=== PATIENT | male | born 1955 | race Caucasian/White ===

== ENCOUNTER 2017-10-31 09:56 | Inpatient (IN) | payer BC ==
[2017-10-31] VITALS (8 sets, daily range): BP systolic 167–199; BP diastolic 90–103; PULSE 54–62; RESP 16–18; TEMP 97.4–98.4; O2SAT 96–99
[~2017-10-31] VITALS: Ht 165.1 cm; Wt 70.0 kg
[~2017-10-31 09:56] MED LIST: ASPI325T PO; CYCL1PAK PO; LORTA5 PO; ZOCO40TA PO
[2017-10-31] MEDS ORDERED: MELO7.5T27 PO (10:10)
[2017-10-31] MEDS ORDERED: ASPI-183 PO (10:10)
[2017-10-31] MEDS ORDERED: SIMV40TA PO (10:10)
--- NOTE | 2017-10-31 10:26 | PD ---
HPI Chief Complaint: Back/ Neck Pain or Injury Time Seen by Provider: 10:13 Travel History International Travel<30 days: No Contact w/Intl Traveler<30days: No Traveled to known affect area: No History of Present Illness HPI This patient complains of injuries from a fall. He was standing up on a platform 5 foot off the ground working in a house. He actually stepped off a platform and fell. He fell head first and struck his head. He denies LOC. He struck dirt. He has mild headache. He complains of some stiffness of his neck. He is not having neck pain per se. He says that when he hit the ground his right hand would not work right for about 1 minute. Now moves well. He complains of paresthesia between right shoulder and right elbow. It is only on the top of his arm. Not circumferential. Does not have numbness or motor weakness at this time. He has been ambulatory for the last 2 hours prior to coming in. He drove himself here. Duration is 2 hours. Symptoms are moderately severe. No alleviating factors. No exacerbating factors. He takes a baby aspirin daily. PFSH Past Medical History Cardiac Catheterization: Yes High Cholesterol: Yes Diminished Hearing: No Hypertension: Yes Tetanus Vaccination: < 5 Years Past Surgical History Abdominal Surgery: Yes (HERNIA) Social History Alcohol Use: No Tobacco Use: No Substance Use: No Allergies-Medications (Allergen,Severity, Reaction): Coded Allergies: No Known Allergies (Verified Adverse Reaction, Unknown, 10/31/17) Reported Meds & Prescriptions Reported Meds & Active Scripts Active Reported Simvastatin 40 Mg Tab 40 Mg PO HS Meloxicam 7.5 Mg Tab 7.5 Mg PO DAILY Aspirin 325 Mg Tab 325 Mg PO DAILY Review of Systems General / Constitutional: No: Fever Eyes: No: Visual changes HENT: Positive: Headaches, Neck Pain Cardiovascular: No: Chest Pain or Discomfort Respiratory: No: Shortness of Breath Gastrointestinal: No: Abdominal Pain Genitourinary: No: Dysuria Musculoskeletal: No: Pain Skin: No Rash Neurologic: Positive: Paresthesia, No: Weakness Psychiatric: No: Depression Endocrine: No: Polydipsia Hematologic/Lymphatic: No: Easy Bruising Physical Exam Narrative GENERAL: Well-nourished, well-developed patient in no apparent distress. SKIN: Focused skin assessment reveals no rash and nodules. Skin is Warm and dry. HEAD: Atraumatic. Normocephalic. EYES: Pupils equal and round. No scleral icterus. No injection or drainage. ENT: No nasal bleeding or discharge. Mucous membranes pink and moist. NECK: Trachea midline. No JVD. No midline tenderness. No bruising or swelling. [place] collar was applied in triage and that is maintained CARDIOVASCULAR: Regular rate and rhythm. No murmur appreciated. RESPIRATORY: No accessory muscle use. Clear to auscultation. Breath sounds equal bilaterally. GASTROINTESTINAL: Abdomen soft, non-tender, nondistended. Hepatic and splenic margins not palpable. MUSCULOSKELETAL: No obvious deformities. No clubbing. No cyanosis. No edema. NEUROLOGICAL: Awake and alert. No obvious cranial nerve deficits. Motor grossly within normal limits. Normal speech. Sensation subjectively intact. He has subjective paresthesia in the right upper arm but no objective finding PSYCHIATRIC: Appropriate mood and affect; insight and judgment normal. Data Data Last Documented VS Vital Signs Date Time Temp Pulse Resp B/P (MAP) Pulse Ox O2 Delivery O2 Flow Rate FiO2 10/31/17 12:28 55 16 176/93 (120) 97 Room Air 10/31/17 09:[address] Brain W/O Iv Contrast(Rout) (10/31/17 ) Ct Cerv Spine W/O Contrast (10/31/17 ) Mri C Spine W/O Contrast (10/31/17 ) Iv Access Insert/Monitor (10/31/17 10:21) Complete Blood Count With Diff (10/31/17 10:21) Basic Metabolic Panel (Bmp) (10/31/17 10:21) Prothrombin Time / Inr (Pt) (10/31/17 10:21) Act Partial Throm Time (Ptt) (10/31/17 10:21) Labetalol Inj (Trandate Inj) (10/31/17 10:30) [place] J Collar (10/31/17 ) Spine, Cervical Fl/Ext Only (10/31/17 ) Labs Laboratory Tests Test 10/31/17 10:15 White Blood Count 6.8 TH/MM3 Red Blood Count 3.82 MIL/MM3 Hemoglobin 12.9 GM/DL Hematocrit 36.1 % Mean Corpuscular Volume 94.5 FL Mean Corpuscular Hemoglobin 33.7 PG Mean Corpuscular Hemoglobin Concent 35.7 % Red Cell Distribution Width 13.9 % Platelet Count 306 TH/MM3 Mean Platelet Volume 7.0 FL Neutrophils (%) (Auto) 78.3 % Lymphocytes (%) (Auto) 13.5 % Monocytes (%) (Auto) 6.1 % Eosinophils (%) (Auto) 1.6 % Basophils (%) (Auto) 0.5 % Neutrophils # (Auto) 5.4 TH/MM3 Lymphocytes # (Auto) 0.9 TH/MM3 Monocytes # (Auto) 0.4 TH/MM3 Eosinophils # (Auto) 0.1 TH/MM3 Basophils # (Auto) 0.0 TH/MM3 CBC Comment DIFF FINAL Differential Comment Prothrombin Time 10.0 SEC Prothromb Time International Ratio 1.0 RATIO Activated Partial Thromboplast Time 27.7 SEC Blood Urea Nitrogen 28 MG/DL Creatinine 1.22 MG/DL Random Glucose 104 MG/DL Calcium Level 9.7 MG/DL Sodium Level 138 MEQ/L Potassium Level 4.6 MEQ/L Chloride Level 104 MEQ/L Carbon Dioxide Level 23.5 MEQ/L Anion Gap 11 MEQ/L Estimat Glomerular Filtration Rate 60 ML/MIN MDM Medical Decision Making Medical Screen Exam Complete: Yes Emergency Medical Condition: Yes Medical Record Reviewed: Yes Differential Diagnosis Cervical cord contusion, cervical fracture, intracranial hemorrhage Narrative Course I have reviewed the patient's electronic medical record. Patient was seen in 2014 for fall resulting pneumothorax IV placed and labs sent At this time there is no neurologic deficit I have ordered extensive imaging of his head and neck region Brain CT is negative Cervical spine CT shows a fracture of C1 which is acute. MRI of the cervical spine shows some degenerative disease and canal narrowing CBC and metabolic studies reviewed I reviewed the case in detail with neurosurgeon Dr. Lang. He came down to the ER and evaluated the patient. He recommends [place] collar placement and admission to the hospital to the trauma service on the regular floor I discussed this with trauma surgeon Dr. Stahl by way of the circulating nurse as he is scrubbed in the case but he agrees to admit Critical Care Narrative Aggregate critical care time was 35 minutes. Time to perform other separately billable procedures was not included in the critical care time. My time did not include minutes spent treating any other patients simultaneously or on activities that did not directly contribute to the patient's treatment. The services I provided to this patient were to treat and/or prevent clinically significant deterioration that could result in: Permanent neurological deficit, brain stem herniation, intracranial hemorrhage I provided critical care services requiring my management, as noted below: Chart data review, documentation time, medication orders and management, vital sign assessments/reviewing monitor data, ordering and reviewing lab tests, ordering and interpreting/reviewing x-rays and diagnostic studies, care of the patient and discussion of the patient with the admitting physicians. Diagnosis Primary Impression: C1 cervical fracture Qualified Codes: S12.001A - Unspecified nondisplaced fracture of first cervical vertebra, initial encounter for closed fracture Additional Impressions: Head injury Qualified Codes: S09.90XA - Unspecified injury of head, initial encounter Paresthesia of right arm Hypertension Qualified Codes: I10 - Essential (primary) hypertension Admitting Information Admitting Physician Requests: Bill Cifuentes MD Oct 31, 2017 10:26
[2017-10-31] MEDS ORDERED: LABETALOL HCL 100 MG/20 ML VIAL IV PUSH ONE (10:30)
[2017-10-31 10:44] LABS: AUTOMATED NEUTROPHIL # 5.4 TH/MM3 (1.8-7.7); BASOPHIL % 0.5 % (0.0-2.0); EOSINOPHIL # 0.1 TH/MM3 (0-0.4); EOSINOPHIL % 1.6 % (0.0-4.0); HEMATOCRIT 36.1 % (39.0-51.0); HEMOGLOBIN 12.9 GM/DL (13.0-17.0); LYMPH % 13.5 % (9.0-44.0); LYMPHOCYTE # 0.9 TH/MM3 (1.0-4.8); MEAN CELL VOLUME 94.5 FL (80.0-100.0); MEAN CORPUSCULAR HEMOGLOBIN 33.7 PG (27.0-34.0); MEAN CORPUSCULAR HGB CONC 35.7 % (32.0-36.0); MONO % 6.1 % (0.0-8.0); MONOCYTE # 0.4 TH/MM3 (0-0.9); NEUT % 78.3 % (16.0-70.0); PLATELET COUNT 306 TH/MM3 (150-450); RED BLOOD COUNT 3.82 MIL/MM3 (4.50-5.90); RED CELL DISTRIBUTION WIDTH 13.9 % (11.6-17.2); WHITE BLOOD COUNT 6.8 TH/MM3 (4.0-11.0)
[2017-10-31 11:00] LABS: BICARBONATE 23.5 MEQ/L (21.0-32.0); CALCIUM 9.7 MG/DL (8.5-10.1); CREATININE 1.22 MG/DL (0.60-1.30)
--- NOTE | 2017-10-31 11:17 | RADRPT ---
EXAM DATE: 10/31/2017 10:59 AM EDT AGE/SEX: 62 years / Male INDICATIONS: Fall off of platform five feet high. Patient states he hit his head and neck. CLINICAL DATA: This is the patient's initial encounter. Patient reports that signs and symptoms have been present for 1 day and indicates a pain score of 8/10. MEDICAL/SURGICAL HISTORY: Hypertension. . Cardiac cath. RADIATION DOSE: 17.94 CTDI (mGy) COMPARISON: No prior exams available for comparison. TECHNIQUE: Contiguous axial images were obtained using helical multirow detector technique. The vol umetric data was post-processed with multiplanar reconstruction in oblique axial, sagittal, and coron al planes. Using automated exposure control and adjustment of the mA and/or kV according to patient s ize, radiation dose was kept as low as reasonably achievable to obtain optimal diagnostic quality edmond ges. DICOM format image data is available electronically for review and comparison. FINDINGS: Vertebrae: There is fracturing of the right lateral mass of C1. This also fracturing of the posterio r arch of C1 just to the right of midline. There is fracturing through the right transverse process a nd foramina transversarium. These fractures are not significantly displaced. There does appear to be fusion at the C2 and C3 level. There is suspected fusion between the C3 and C 4 left facet joint. There is minimal 2 mm of anterior subluxation of C3 on C4 and of C7 on T1.. There is left sphenoid sinus disease. C2-3: Again noted is fusion at this level. The fusion involves the disc and posterior elements. A si gnificant impression on thecal sac is not seen. C3-4: Again noted is the mild anterior subluxation of C3 on C4. A significant impression on thecal s ac is not seen. There appears to be fusion at the left facet joint. There is fusion at the left uncov ertebral joint.. There is uncovertebral hypertrophy seen. There is narrowing of the left neural wale roland. The right neural foramina appears normal. C4-5: The disc demonstrates decreased height. There is moderate disc bulge and osteophytic ridging. There is uncovertebral hypertrophy. There is narrowing of the neural foramina bilaterally. C5-6: The disc demonstrates decreased height. There is mild disc bulge and osteophytic ridging. Ther e is uncovertebral hypertrophy being worse on the left. There is mild left facet hypertrophy. The rekha ral foramina are grossly patent. C6-7: The disc demonstrates decreased height. There is mild disc bulge and osteophytic ridging. Ther e is uncovertebral hypertrophy being worse on the right. The neural foramina are bilaterally patent. C7-T1: Again noted is the mild anterior subluxation of C7 on T1. A significant impression on thecal sac is not seen. There is bilateral facet hypertrophy. CONCLUSION: 1. Acute fracture at C1. 2. Fusion at the C2-C3 level and at the left facet and uncovertebral hypertrophy at the C3-C4 levels . 3. Moderate stenosis at the C4-C5 level caused by disc bulge and osteophytic ridging. 4. Mild thecal sac narrowing at the C5-C6 and C6-C7 levels. 5. Facet and uncovertebral hypertrophy seen throughout as described above. 6. Left neural foraminal narrowing at the C3-C4 level. Electronically signed by: Ag Isaac MD 10/31/2017 11:15 AM EDT
--- NOTE | 2017-10-31 11:19 | RADRPT ---
EXAM DATE: 10/31/2017 11:01 AM EDT AGE/SEX: 62 years / Male INDICATIONS: Fall from five foot high platform. Patient states he hit his head and neck. CLINICAL DATA: This is the patient's initial encounter. Patient reports that signs and symptoms have been present for 1 day and indicates a pain score of 8/10. MEDICAL/SURGICAL HISTORY: Hypertension. . Cardiac cath. RADIATION DOSE: 56.35 CTDI (mGy) COMPARISON: No prior exams available for comparison. TECHNIQUE: CT of the head without contrast. Using automated exposure control and adjustment of the mA and/or kV according to patient size, radiation dose was kept as low as reasonably achievable to ob tain optimal diagnostic quality images. DICOM format image data is available electronically for revi ew and comparison. FINDINGS: Cerebrum: The ventricles are normal for age. No evidence of midline shift, mass lesion, hemorrhage or acute infarction. No extraaxial fluid collections are seen. Posterior Fossa: The cerebellum and brainstem are intact. The 4th ventricle is midline. The cerebe llopontine angle is unremarkable. Extracranial: The visualized portion of the orbits is intact. There is right frontal, bilateral ethm oid, left sphenoid and bilateral maxillary sinus disease. Skull: The calvaria is intact. No evidence of skull fracture. CONCLUSION: 1. No acute intracranial abnormality is seen. 2. Sinus disease. Electronically signed by: Ag Isaac MD 10/31/2017 11:17 AM EDT
--- NOTE | 2017-10-31 11:35 | RADRPT ---
EXAM DATE: 10/31/2017 11:27 AM EDT AGE/SEX: 62 years / Male INDICATIONS: Fracture. Fall from 5 feet this morning. CLINICAL DATA: This is the patient's initial encounter. Patient reports that signs and symptoms have been present for 1 day and indicates a pain score of 3/10. MEDICAL/SURGICAL HISTORY: Hypertension. Umbilical hernia repair. COMPARISON: No prior exams available for comparison. TECHNIQUE: Multiplanar, multisequence MRI examination of the cervical spine was performed without co ntrast. FINDINGS: Sagittal T1 and T2-weighted imaging demonstrates severe degenerative changes throughout the upper and mid cervical spine. There is a couple field deformity with fusion across the C2/[address] raightening of the normal cervical curve. No abnormal marrow signal is seen within the vertebral bodi es. No abnormal signal is identified within the cervical cord. The cerebellar tonsils are in their appropriate location. 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 The thecal space and foramina are adequate. C3-C4: There is a desiccated, degenerated disc with broad-based disc bulge and osteophytic ridging. There is moderate facet arthritis bilaterally. There is moderate bony foraminal narrowing on the left . The foramina on the right appears adequate. There is effacement of the ventral thecal sac with oste ophytic spur and disc bulge just abutting the ventral aspect of the cord. C4-C5: There is a desiccated, degenerated disc with broad-based disc protrusion and diffuse osteophy tic ridging. This effaces the ventral thecal sac and abuts the ventral aspect of the cord. There is m oderate flattening of the cord. There is facet arthritis bilaterally. These changes combine and resul t in a severe spinal stenosis and bilateral foraminal narrowing. There is osteophytic spur and disc p rotrusion projecting into the lateral recess and out into the foramina on the right. C5-C6: There is a degenerated disc with a broad-based disc bulge and osteophytic ridging. This effac es the ventral thecal sac and abuts the ventral aspect of the cord. There is mild flattening of the v entral aspect of the cord. There is mild facet arthritis bilaterally. There is mild narrowing of the lateral recess bilaterally. There is bony foraminal narrowing bilaterally. C6-C7: There is a desiccated, degenerated disc with broad-based disc bulge and osteophytic ridging. This effaces the ventral thecal sac. There is uncovertebral osteophyte and disc bulge projecting into the lateral recess and encroaching upon the base of the foramina on the right. The foramina on the l eft is adequate. There is mild facet arthritis bilaterally. C7-T1: No epidural impressions seen. There is facet arthritis bilaterally.. CONCLUSION: 1. Advanced degenerative spondylosis with the most significant abnormality at C4-5. Note is made of significant degenerative changes at C3-4 and C5-6 as well. The individual levels are dictated in deta il above. Electronically signed by: Louie Castillo MD 10/31/2017 11:34 AM EDT
--- NOTE | 2017-10-31 13:44 | RADRPT ---
EXAM DATE: 10/31/2017 1:39 PM EDT AGE/SEX: 62 years / Male INDICATIONS: Evaluate C1 fracture and mobility. CLINICAL DATA: This is the patient's initial encounter. Patient reports that signs and symptoms have been present for 1 day and indicates a pain score of 1/10. MEDICAL/SURGICAL HISTORY: None. None. COMPARISON: No prior exams available for comparison. FINDINGS: Flexion and extension films of the cervical spine reveals little motion with flexion-extension. 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 Osteophytes are seen anteriorly from C3 to C6. There is marked loss of disc space height at all levels. CONCLUSION: Fusions as above with significant degenerative changes No abnormal motion segments. Electronically signed by: Jerry Castillo MD 10/31/2017 1:43 PM EDT
[2017-10-31] MEDS ORDERED: MORPHINE SULFATE 4 MG/ML INJ IV PUSH ONE (14:45)
[2017-10-31] MEDS ORDERED: ONDANSETRON ODT 4 MG TAB PO ONE (14:45)
[2017-10-31] MEDS ORDERED: ENALAPRILAT 1.25 MG/ML VIAL IV PUSH PRN (17:00)
[2017-10-31] MEDS ORDERED: CHLORHEXIDINE GLUCONATE 2 % 1 PACK (2 CLOTHS) TOP PRN (17:00)
[2017-10-31] MEDS ORDERED: HYDROmorphone HCL PF 2 MG/ML VIAL IV PUSH PRN (17:00)
[2017-10-31] MEDS ORDERED: NURSING INFORMATION XX SCH (17:00)
[2017-10-31] MEDS ORDERED: ACETAMINOPHEN/HYDROcodone 325 MG/5 MG TAB PO PRN ×2 (17:00)
[2017-10-31] MEDS ORDERED: SODIUM CHLORIDE 0.9% FLUSH 10 ML FLUSH IV FLUSH PRN (17:00)
--- NOTE | 2017-10-31 17:39 | MH ---
cc: Johnny Stahl MD, Lars S MD DATE OF ADMISSION: 10/31/2017 CHIEF COMPLAINT: Status post fall, trauma consult. HISTORY OF PRESENT ILLNESS: The patient is a 62-year-old male who presents status post fall. The patient states he was on a platform approximately 5 feet up when he was working on his house and he stepped off and fell onto the dirt. He denies any loss of consciousness. He states he struck the dirt and complains of headache and right upper extremity tingling and numbness. He came to the emergency department for evaluation including CT scan of the head which was negative and a CT C-spine showing previous hardware along with a comminuted C1 fracture. He has been hemodynamically stable, although he has been somewhat hypertensive and otherwise awake and alert with a GCS of 15. Surgery was consulted for further evaluation. PAST MEDICAL HISTORY: Hypercholesteremia, hypertension, hearing impaired. PAST SURGICAL HISTORY: Hernia repair, cardiac catheterization. SOCIAL HISTORY: Denies smoking, ETOH or IVDA. ALLERGIES: NO KNOWN DRUG ALLERGIES. MEDICATIONS: See EMR. FAMILY HISTORY: Denies diabetes or hypertension. REVIEW OF SYSTEMS: GENERAL: Denies fever or chills. HEENT: Denies eye pain, ear pain. Complains of headache. NECK: Complains of pain. Denies swelling. RESPIRATORY: Denies shortness of breath. CARDIAC: Denies palpitations or chest pain. ABDOMEN: Denies nausea or vomiting. GENITOURINARY: Denies dysuria, hematuria. ENDOCRINE: Denies polyuria or polydipsia. NEUROLOGIC: Complains of paresthesias, denies weakness. PSYCHIATRIC: Denies depression or change in mood. PHYSICAL EXAMINATION: GENERAL: The patient in no acute distress. VITAL SIGNS: Temperature 97.4, pulse 55, respirations 16, blood pressure 176/93, saturation 97%. HEENT: Pupils equal, round, reactive. NECK: Supple. Trachea midline. C-collar in place. Clavicles nontender. CHEST: Clear to auscultation, bilateral expansion. HEART: S1, S2. Regular. ABDOMEN: Soft, nontender, nondistended. EXTREMITIES: Warm and well perfused. NEUROLOGIC: 5/5 motor in all extremities, moving all extremities, complains of numbness over right arm. GCS of 15. Cranial nerves grossly intact. PSYCHIATRIC: Appropriate mood, appropriate insight. LABORATORY AND DIAGNOSTIC DATA: WBC 6.8, hemoglobin 12.9, hematocrit 36.1, platelets 306. Sodium 138, potassium 4.6, chloride 104, BUN 28, creatinine 1.2, calcium 9.7. INR is 1. CT is reviewed myself showing CT head: No acute fracture. CT C-spine: Acute C1 fracture, comminuted, fusion C2-3, stenosis C4-C5. ASSESSMENT: The patient is a 62-year-old male status post fall with a C1 fracture in C-collar. PLAN: After full workup, the patient with the above named issues. At this point, the patient does have a significant C1 fracture for which he is maintained in C collar. We will discuss with neurosurgery regarding evaluation. We will await definitive results on MRI and pending further definitive management from this. Patient will need to be admitted with every 1 hour neuro checks, close monitoring. Discussed with the patient in detail. He states understanding and agrees. We will continue to monitor and high level of care for ongoing issues. The patient is mildly hypertensive. We will control this and patient will be n.p.o. until further recommendations from neurosurgery. MD CHUN Jane/ , 05:17 PM , 05:37 PM
--- NOTE | 2017-10-31 17:39 | PD.CONS ---
(Erica Butt) HPI Service NRS Consult Requested By ED Physician Reason for Consult C1 fracture Primary Care Physician Non-Staff History of Present Illness Mr. Dill is a 62 year old male who fell off a scaffolding while fixing his house. He fell onto the right side of his body. No LOC, not seizure like activities. Following the fall he reported of neck pain and paresthesias in the right arm and weakness. He states this has since improved. He denies lower extremity weakness, radicular pain, bowel or bladder incontinence. CT C spine shows fracturing of the right lateral mass of C1, fracturing of the posterior arch of C1, fracturing through the right transverse process and foramina transversarium. These fractures are not significantly displaced. He has undergone MRI of the cervical spine. Neurosurgical evaluation requested. (Erica Butt) Review of Systems Constitutional: DENIES: Fever, Chills Eyes: DENIES: Diplopia, Vision loss Ears, nose, mouth, throat: DENIES: Hearing loss Respiratory: DENIES: Apneas, Hemoptysis Cardiovascular: DENIES: Chest pain Gastrointestinal: DENIES: Abdominal pain Musculoskeletal: COMPLAINS OF: Joint pain, Muscle aches, Stiffness, Neck pain Neurologic: DENIES: Localized weakness, Paresthesias Psychiatric: DENIES: Hallucinations (Erica Butt) Past Family Social History Allergies: Coded Allergies: No Known Allergies (Verified Allergy, Unknown, 10/31/17) Past Medical History Hyperlipidemia Hypertension Past Surgical History Cardiac Catherization Hernia repair Reported Medications reviewed in EMR Active Ordered Medications Current Medications Medications (Trade) Dose Ordered Sig/Shay Route PRN Reason Start Time Stop Time Status Last Admin Dose Admin Sodium Chloride 1,000 ml @ 100 mls/hr Q10H IV 10/31/17 16:57 Sodium Chloride (NS Flush) 2 ml UNSCH PRN IV FLUSH FLUSH AFTER USING IV ACCESS 10/31/17 17:00 Hydromorphone HCl (Dilaudid Pf Inj) 1 mg Q1H PRN IV PUSH BREAKTHROUGH PAIN 10/31/17 17:00 Acetaminophen/ Hydrocodone Bitart (Purcell 5-325 Mg) 1 tab Q4H PRN PO PAIN SCALE 1 TO 5 10/31/17 17:00 Acetaminophen/ Hydrocodone Bitart (Purcell 5-325 Mg) 2 tab Q4H PRN PO PAIN SCALE 6 TO 10 10/31/17 17:00 10/31/17 17:42 Enalaprilat (Vasotec Inj) 1.25 mg Q8H PRN IV PUSH SBP>180, DBP>95 10/31/17 17:00 Ondansetron HCl (Zofran Odt) 4 mg Q6H PRN PO NAUSEA OR VOMITING 10/31/17 17:00 10/31/17 17:42 Pantoprazole Sodium (Protonix Inj) 40 mg DAILY IVP 10/31/17 17:00 Docusate Sodium (Colace) 100 mg BID PO 10/31/17 21:00 Miscellaneous Information ([facility]) 1 [id number] XX 10/31/17 17:00 Chlorhexidine Gluconate (Chlorhexidine 2% Cloth) 3 pack Taper DAILY@04 TOP 11/01/17 04:00 10/28/18 03:59 Chlorhexidine Gluconate (Chlorhexidine 2% Cloth) 3 pack UNSCH PRN TOP HYGIENIC CARE 10/31/17 17:00 Family History reviewed, does not contribute to his current problem Social History denies tobacco, etoh, or illicit drug use (Erica Butt) Physical Exam Vital Signs Vital Signs Date Time Temp Pulse Resp B/P (MAP) Pulse Ox O2 Delivery O2 Flow Rate FiO2 10/31/17 15:11 59 18 170/103 (125) 98 Room Air 10/31/17 14:50 15 10/31/17 12:28 55 16 176/93 (120) 97 Room Air 10/31/17 10:15 194/95 (128) 10/31/17 10:11 62 16 199/101 (133) 98 Room Air 10/31/17 09:58 97.4 62 16 190/92 (124) 97 Physical Exam General: Mr. Dill in no obvious distress Neuro: Awake, alert and oriented to person, place, and time. Speech is clear and fluent. Can follow single and multi-step commands without apraxia. Cranial nerve examination: pupils to be equal, round, and reactive to light. Extra- ocular movements are intact with normal convergence. Facial motor and sensory function are normal and symmetrical. Gross hearing is intact, bilaterally, to finger rub. The uvula is midline and elevates symmetrically with the soft palate. Sternocleidomastoid and deltoid muscles have normal and symmetrical strength. Other cranial nerves are intact. HEENT: Normocephalic, atraumatic. Gross hearing intact bilaterally. Nonicteric sclera. Neck: No massess, no JVD. Trachea midline. Immobilized by cervical collar. Musculoskeletal: No peripheral edema. No obvious deformities to extremities. No clubbing. 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 In the lower extremities, strength is 5/5 bilateral iliopsoas, quadriceps, bilateral hamstrings, tibialis anterior, gastrocnemius, and extensor hallucis longus. Sensory examination is intact light touch in both the upper and lower extremities Deep tendon reflexes are 2+ biceps, triceps, and brachioradialis, bilaterally, in the upper extremities. In the lower extremities, the patellar are 1+ and Achilles are 2+, bilaterally. There is a bilateral plantar flexion response. Hoffmanns sign is negative. There is no clonus. Cerebellar: intact finger to nose bilaterally Lungs: clear to auscultate bilaterally, nonlabored breathing on room air, no wheezing, no accessory muscle use. Heart: regular rate and rhythm Skin: warm and dry, no cyanosis or erythema. Laboratory Laboratory Tests Test 10/31/17 10:15 White Blood Count 6.8 Red Blood Count 3.82 Hemoglobin 12.9 Hematocrit 36.1 Mean Corpuscular Volume 94.5 Mean Corpuscular Hemoglobin 33.7 Mean Corpuscular Hemoglobin Concent 35.7 Red Cell Distribution Width 13.9 Platelet Count 306 Mean Platelet Volume 7.0 Neutrophils (%) (Auto) 78.3 Lymphocytes (%) (Auto) 13.5 Monocytes (%) (Auto) 6.1 Eosinophils (%) (Auto) 1.6 Basophils (%) (Auto) 0.5 Neutrophils # (Auto) 5.4 Lymphocytes # (Auto) 0.9 Monocytes # (Auto) 0.4 Eosinophils # (Auto) 0.1 Basophils # (Auto) 0.0 CBC Comment DIFF FINAL Differential Comment Prothrombin Time 10.0 Prothromb Time International Ratio 1.0 Activated Partial Thromboplast Time 27.7 Blood Urea Nitrogen 28 Creatinine 1.22 Random Glucose 104 Calcium Level 9.7 Sodium Level 138 Potassium Level 4.6 Chloride Level 104 Carbon Dioxide Level 23.5 Anion Gap 11 Estimat Glomerular Filtration Rate 60 (Erica Butt) Physical Exam General: Mr. Dill in no obvious distress Neuro: Awake, alert and oriented to person, place, and time. Speech is clear and fluent. Can follow single and multi-step commands without apraxia. Cranial nerve examination: pupils to be equal, round, and reactive to light. Extra- ocular movements are intact with normal convergence. Facial motor and sensory function are normal and symmetrical. Gross hearing is intact, bilaterally, to finger rub. The uvula is midline and elevates symmetrically with the soft palate. Sternocleidomastoid and deltoid muscles have normal and symmetrical strength. Other cranial nerves are intact. HEENT: Normocephalic, atraumatic. Gross hearing intact bilaterally. Nonicteric sclera. Neck: No massess, no JVD. Trachea midline. Immobilized by cervical collar. Musculoskeletal: No peripheral edema. No obvious deformities to extremities. No clubbing. 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 In the lower extremities, strength is 5/5 bilateral iliopsoas, quadriceps, bilateral hamstrings, tibialis anterior, gastrocnemius, and extensor hallucis longus. Sensory examination is intact light touch in both the upper and lower extremities Deep tendon reflexes are 2+ biceps, triceps, and brachioradialis, bilaterally, in the upper extremities. In the lower extremities, the patellar are 1+ and Achilles are 2+, bilaterally. There is a bilateral plantar flexion response. Hoffmanns sign is negative. There is no clonus. Cerebellar: intact finger to nose bilaterally Lungs: clear to auscultate bilaterally, nonlabored breathing on room air, no wheezing, no accessory muscle use. Heart: regular rate and rhythm Skin: warm and dry, no cyanosis or erythema.General: Mr. Dill in no obvious distress Neuro: Awake, alert and oriented to person, place, and time. Speech is clear and fluent. Can follow single and multi-step commands without apraxia. Cranial nerve examination: pupils to be equal, round, and reactive to light. Extra- ocular movements are intact with normal convergence. Facial motor and sensory function are normal and symmetrical. Gross hearing is intact, bilaterally, to finger rub. The uvula is midline and elevates symmetrically with the soft palate. Sternocleidomastoid and deltoid muscles have normal and symmetrical strength. Other cranial nerves are intact. HEENT: Normocephalic, atraumatic. Gross hearing intact bilaterally. Nonicteric sclera. Neck: No massess, no JVD. Trachea midline. Immobilized by cervical collar. Musculoskeletal: No peripheral edema. No obvious deformities to extremities. No clubbing. 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 In the lower extremities, strength is 5/5 bilateral iliopsoas, quadriceps, bilateral hamstrings, tibialis anterior, gastrocnemius, and extensor hallucis longus. Sensory examination is intact light touch in both the upper and lower extremities Deep tendon reflexes are 2+ biceps, triceps, and brachioradialis, bilaterally, in the upper extremities. In the lower extremities, the patellar are 1+ and Achilles are 2+, bilaterally. There is a bilateral plantar flexion response. Hoffmanns sign is negative. There is no clonus. Cerebellar: intact finger to nose bilaterally Lungs: clear to auscultate bilaterally, nonlabored breathing on room air, no wheezing, no accessory muscle use. Heart: regular rate and rhythm Skin: warm and dry, no cyanosis or erythema. (Manpreet Lang MD) Result Diagram: 10/31/17 1015 10/31/17 1015 Imaging (Erica Butt) Attending Statement I reviewed his radiological studies Head CT 10/31/17 0000 Signed Impressions: CONCLUSION: 1. No acute intracranial abnormality is seen. 2. Sinus disease. Cervical Spine X-Ray 10/31/17 0000 Signed Impressions: CONCLUSION: Fusions as above with significant degenerative changes No abnormal motion segments. Cervical Spine CT 10/31/17 0000 Signed Impressions: CONCLUSION: 1. Acute fracture at C1. 2. Fusion at the C2-C3 level and at the left facet and uncovertebral hypertrop hy at the C3-C4 levels. 3. Moderate stenosis at the C4-C5 level caused by disc bulge and osteophytic r idging. 4. Mild thecal sac narrowing at the C5-C6 and C6-C7 levels. 5. Facet and uncovertebral hypertrophy seen throughout as described above. 6. Left neural foraminal narrowing at the C3-C4 level. His fracture is potentially unstable. I discussed with him the alternatives of treatment with the patient, including conservative treatment with a [place] collar versus placement of a halo brace . Recommend an MRI of the cervical spine for further evaluation. I will defer further recommendations to upon completion Neuro checks every 1 hr and Bed rest strict until MRI done Percocet/morphine as needed for pain Arterial hypertension. Manage with antihypertensives as needed Pulmonary. aggressive pulmonary toilette, nasotracheal suction, and breathing treatments with nebulizers. Daily PT and OT Renal. Continue to monitor closely urine output, BUN and creatinine Endocrine. Continue to Monitor serial Acu checks and SSI as needed in detail ID continue to monitor for signs of infection Continue Protonix for stress ulcer prophylaxis Continue Yran hose and SCD's for DVT prophylaxis Caprini VTE Risk Assessment Caprini VTE Risk Assessment: Mod/High Risk (score >= 2) VTE Pharm Contraindication: Intracranial lesions Caprini Risk Assessment Model Point Value = 1 Point Value = 2 Point Value = 3 Point Value = 5 Age 41-60 Minor surgery BMI > 25 kg/m2 Swollen legs Varicose veins or History of unexplained or recurrent spontaneous Oral contraceptives or hormone replacement Sepsis (< 1 month) Serious lung disease, including pneumonia (< 1 month) Abnormal pulmonary function Acute myocardial infarction Congestive heart failure (< 1 month) History of inflammatory bowel disease Medical patient at bed rest Age 61-74 Arthroscopic surgery Major open surgery (> 45 min) Laparoscopic surgery (> 45 min) Malignancy Confined to bed (> 72 hours) Immobilizing plaster cast Central venous access Age >= 75 History of VTE Family history of VTE Factor V Leiden Prothrombin [id number] Lupus anticoagulant Anticardiolipin antibodies Elevated serum homocysteine Heparin-induced thrombocytopenia Other congenital or acquired thrombophilia Stroke (< 1 month) Elective arthroplasty Hip, pelvis, or leg fracture Acute spinal cord injury (< 1 month) Prophylaxis Regimen Total Risk Factor Score Risk Level Prophylaxis Regimen 0-1 Low Early ambulation 2 Moderate Order ONE of the following: *Sequential Compression Device (SCD) *Heparin 5000 units SQ BID 3-4 Higher Order ONE of the following medications: *Heparin 5000 units SQ TID *Enoxaparin/Lovenox 40 mg SQ daily (WT < 150 kg, CrCl > 30 mL/min) *Enoxaparin/Lovenox 30 mg SQ daily (WT < 150 kg, CrCl > 10-29 mL/min) *Enoxaparin/Lovenox 30 mg SQ BID (WT < 150 kg, CrCl > 30 mL/min) AND/OR *Sequential Compression Device (SCD) 5 or more Highest Order ONE of the following medications: *Heparin 5000 units SQ TID (Preferred with Epidurals) *Enoxaparin/Lovenox 40 mg SQ daily (WT < 150 kg, CrCl > 30 mL/min) *Enoxaparin/Lovenox 30 mg SQ daily (WT < 150 kg, CrCl > 10-29 mL/min) *Enoxaparin/Lovenox 30 mg SQ BID (WT < 150 kg, CrCl > 30 mL/min) AND *Sequential Compression Device (SCD) Further recommendations depending on his clinical condition and follow-up studies The exam, history, and the medical decision-making described in the above note were completed with the assistance of the mid-level provider. I reviewed and agree with the findings presented. I attest that I had a [id number] encounter with the patient on the same day, and personally performed and documented my assessment and findings in the medical record. (Manpreet Lang MD) Erica Butt Oct 31, 2017 17:39 Manpreet Lang MD Oct 31, 2017 22:08
[2017-10-31] MEDS: ONDANSETRON ODT 4 MG TAB PO PRN ×2 (17:42→22:32)
[2017-10-31] MEDS: SODIUM CHLOR 0.9% 1000 ML INJ 1,000 ML IV SCH (20:37)
[2017-10-31] MEDS: PANTOPRAZOLE SODIUM 40 MG VIAL IVP SCH (20:38)
[2017-10-31] MEDS: DOCUSATE SODIUM 100 MG CAP PO SCH (22:32)
[2017-10-31] MEDS ORDERED: METOCLOPRAMIDE HCL 10 MG/2 ML VIAL IV PRN (23:30)
[2017-10-31] MEDS ORDERED: SCOPOLAMINE 1.5 MG PATCH T-DERMAL SCH (23:30)
[2017-11-01 00:01] VITALS: BP 154/85; PULSE 65; RESP 17; TEMP 98.1; O2SAT 98
[2017-11-01 04:00] VITALS: BP 142/78; PULSE 59; RESP 17; TEMP 98.9; O2SAT 98
[2017-11-01] MEDS ORDERED: CHLORHEXIDINE GLUCONATE 2 % 1 PACK (2 CLOTHS) TOP SCH (04:00)
[2017-11-01] MEDS: SODIUM CHLOR 0.9% 1000 ML INJ 1,000 ML IV SCH (04:19)
[2017-11-01 07:35] LABS: AUTOMATED NEUTROPHIL # 4.2 TH/MM3 (1.8-7.7); BASOPHIL % 0.6 % (0.0-2.0); EOSINOPHIL # 0.1 TH/MM3 (0-0.4); EOSINOPHIL % 1.5 % (0.0-4.0); HEMOGLOBIN 12.4 GM/DL (13.0-17.0); LYMPH % 17.1 % (9.0-44.0); MEAN CELL VOLUME 95.3 FL (80.0-100.0); MEAN CORPUSCULAR HEMOGLOBIN 31.9 PG (27.0-34.0); MEAN CORPUSCULAR HGB CONC 33.5 % (32.0-36.0); MEAN PLATELET VOLUME 7.2 FL (7.0-11.0); MONO % 9.5 % (0.0-8.0); MONOCYTE # 0.6 TH/MM3 (0-0.9); NEUT % 71.3 % (16.0-70.0); PLATELET COUNT 297 TH/MM3 (150-450); RED BLOOD COUNT 3.88 MIL/MM3 (4.50-5.90); RED CELL DISTRIBUTION WIDTH 13.9 % (11.6-17.2); WHITE BLOOD COUNT 5.9 TH/MM3 (4.0-11.0)
--- NOTE | 2017-11-01 07:38 | RADRPT ---
EXAM DATE: 11/01/2017 7:34 AM EDT AGE/SEX: 62 years / Male INDICATIONS: Follow up trauma injury, neck pain, chest discomfort CLINICAL DATA: This is the patient's subsequent encounter. Patient reports that signs and symptoms h ave been present for 2 days and indicates a pain score of 1/10. MEDICAL/SURGICAL HISTORY: . C1 fracture None. COMPARISON: No prior exams available for comparison. FINDINGS: Portable AP view of the chest demonstrates a normal-sized cardiac silhouette. No effusion, consolidat ion, or pneumothorax is identified. The bones and soft tissues demonstrate no acute finding. There ar e old healed left rib fractures. CONCLUSION: No acute cardiopulmonary abnormality is identified. Electronically signed by: Ag Jacobson MD 11/01/2017 7:37 AM EDT
[2017-11-01 07:50] LABS: BICARBONATE 23.5 MEQ/L (21.0-32.0); CALCIUM 8.9 MG/DL (8.5-10.1); CREATININE 0.98 MG/DL (0.60-1.30)
[2017-11-01 08:08] VITALS: BP 151/77; PULSE 60; RESP 20; TEMP 98.2; O2SAT 97
[2017-11-01] MEDS: PANTOPRAZOLE SODIUM 40 MG VIAL IVP SCH (08:25)
[2017-11-01] MEDS: DOCUSATE SODIUM 100 MG CAP PO SCH ×2 (08:25→21:40)
--- NOTE | 2017-11-01 08:50 | HHI.PR ---
Subjective Subjective Notes PTD: 1 Patient sitting up in bed. No distress noted. at bedside. Patient denies numbness and tingling in any extremity. Does not complain of neck pain per se, but complains of a slight headache. Patient states, "it is a little bit -not too much. I can bear it." Objective Vitals/I&O Vital Signs Date Time Temp Pulse Resp B/P (MAP) Pulse Ox O2 Delivery O2 Flow Rate FiO2 11/01/17 08:08 98.2 60 20 151/77 (101) 97 10/31/17 19:40 Room Air Labs Laboratory Tests Test 10/31/17 10:15 11/01/17 06:50 White Blood Count 6.8 5.9 Red Blood Count 3.82 3.88 Hemoglobin 12.9 12.4 Hematocrit 36.1 37.0 Mean Corpuscular Volume 94.5 95.3 Mean Corpuscular Hemoglobin 33.7 31.9 Mean Corpuscular Hemoglobin Concent 35.7 33.5 Red Cell Distribution Width 13.9 13.9 Platelet Count 306 297 Mean Platelet Volume 7.0 7.2 Neutrophils (%) (Auto) 78.3 71.3 Lymphocytes (%) (Auto) 13.5 17.1 Monocytes (%) (Auto) 6.1 9.5 Eosinophils (%) (Auto) 1.6 1.5 Basophils (%) (Auto) 0.5 0.6 Neutrophils # (Auto) 5.4 4.2 Lymphocytes # (Auto) 0.9 1.0 Monocytes # (Auto) 0.4 0.6 Eosinophils # (Auto) 0.1 0.1 Basophils # (Auto) 0.0 0.0 CBC Comment DIFF FINAL DIFF FINAL Differential Comment Prothrombin Time 10.0 Prothromb Time International Ratio 1.0 Activated Partial Thromboplast Time 27.7 Blood Urea Nitrogen 28 20 Creatinine 1.22 0.98 Random Glucose 104 97 Calcium Level 9.7 8.9 Sodium Level 138 138 Potassium Level 4.6 4.0 Chloride Level 104 105 Carbon Dioxide Level 23.5 23.5 Anion Gap 11 10 Estimat Glomerular Filtration Rate 60 77 Radiology Last Impressions Chest X-Ray 11/01/17 Signed Impressions: CONCLUSION: No acute cardiopulmonary abnormality is identified. Head CT 10/31/17 Signed Impressions: CONCLUSION: 1. No acute intracranial abnormality is seen. 2. Sinus disease. Cervical Spine X-Ray 10/31/17 Signed Impressions: CONCLUSION: Fusions as above with significant degenerative changes No abnormal motion segments. Cervical Spine MRI 10/31/17 Signed Impressions: CONCLUSION: 1. Advanced degenerative spondylosis with the most significant abnormality at C4-5. Note is made of significant degenerative changes at C3-4 and C5-6 as well . The individual levels are dictated in detail above. Cervical Spine CT 10/31/17 Signed Impressions: CONCLUSION: 1. Acute fracture at C1. 2. Fusion at the C2-C3 level and at the left facet and uncovertebral hypertrop hy at the C3-C4 levels. 3. Moderate stenosis at the C4-C5 level caused by disc bulge and osteophytic r idging. 4. Mild thecal sac narrowing at the C5-C6 and C6-C7 levels. 5. Facet and uncovertebral hypertrophy seen throughout as described above. 6. Left neural foraminal narrowing at the C3-C4 level. Narrative Exam GENERAL: This is a 62-year-old male lying in bed. No distress noted. SKIN: Warm and dry. HEAD: Atraumatic. Normocephalic. EYES: PERRLA ENT: No nasal bleeding or discharge. Mucous membranes pink and moist. NECK: Maury J collar in place. Trachea midline. No JVD. CARDIOVASCULAR: Regular rate and rhythm. RESPIRATORY: No accessory muscle use. Lungs are clear to auscultation. Breath sounds equal bilaterally. No distress or dyspnea. GASTROINTESTINAL: BS + x 4 quads. Abdomen soft, non-tender, nondistended. MUSCULOSKELETAL: Extremities without cyanosis, or edema. + peripheral pulses x 4 extremities. Warm with good capillary refill and sensation. MAEW. NEUROLOGICAL: Awake and alert. Normal speech and pattern. A/P Problem List: (1) C1 cervical fracture ICD Codes: S12.000A - Unspecified displaced fracture of first cervical vertebra , initial encounter for closed fracture Status: Acute Assessment and Plan ATKA: This is a 62-year-old male who sustained a fall. He fell from a platform approximately 5 feet off the ground while working on a house. He fell head first and struck his head. No LOC. He originally complained of some neck stiffness. Patient states that after he hit the ground, "my right hand would not work for about a minute." He is now moving all extremities well. He had been ambulatory for 2 hours prior to admission. He drove himself to the hospital. INJURIES: C1 fx w/ canal narrowing PMHx: Hyperlipidemia. HTN. Hernia surgery. Procedures: Consults: Neurosurgery. Case management. Diet: Heart healthy diet. Tolerating po diet. Encourage good po intake with each meal. Pulmonary: Encourage good pulmonary toileting. IS at bedside and pt encouraged to use. Rationale for use explained to patient, and verbalized understanding. PAIN Management: Waller 5-10 mg q 4h. Dilaudid 1 mg q3h. Activity: BR. PT and OT ordered. (Maury J collar at all times) GI prophylaxis: Protonix 40 mg IV. Reglan 10 mg q 8h (N&V) Bowel regimen: Colace and MOM. LBM: 0 DVT prophylaxis: Mechanical VTE with SCDs. Chemical management TBD. DC Planning: Case management consulted for assistance with final discharge disposition. Emotional support provided to patient and family at bedside and plan of care discussed. Discussed with RN at bedside. Discussed pt condition and plan of care with collaborating trauma surgeon. Patient is hemodynamically stable and being managed on the med/surg floor. The trauma team will round each day, and evaluate plan of care on a daily basis. C1 fx w/ canal narrowing Neurosurgery consulted and assisting in management care Awaiting plan for possible surgery versus halo Supportive care Pain management Bedrest PT and OT ordered Maury J collar at all times GI prophylaxis Bowel regimen Control nausea vomiting HTN Hyperlipidemia Heart healthy diet Vitals every 4 hours Resume statin Monitor closely The exam, history, and the medical decision-making described in the above note were completed with the assistance of the mid-level provider. I reviewed and agree with the findings presented. I attest that I had a [id number] encounter with the patient on the same day, and personally performed and documented my assessment and findings in the medical record. Problem Qualifiers (1) C1 cervical fracture: Qualified Codes: S12.001A - Unspecified nondisplaced fracture of first cervical vertebra, initial encounter for closed fracture Jessica Mullins Nov 01, 2017 08:50 Brett Majano MD Nov 01, 2017 15:23
[2017-11-01] MEDS ORDERED: HYDROmorphone HCL PF 2 MG/ML VIAL IV PUSH PRN (11:15)
[2017-11-01 12:12] VITALS: BP 158/74; PULSE 90; RESP 18; TEMP 98; O2SAT 96
--- NOTE | 2017-11-01 15:23 | HHI.NSPN ---
(Erica Butt) Note Status Status: Progress Note (Erica Butt) Interval History Interval History Mr. Dill is a 62 year old male who fell off a scaffolding while fixing his house. He fell onto the right side of his body. No LOC, not seizure like activities. Following the fall he reported of neck pain and paresthesias in the right arm and weakness. He states this has since improved. He denies lower extremity weakness, radicular pain, bowel or bladder incontinence. CT C spine shows fracturing of the right lateral mass of C1, fracturing of the posterior arch of C1, fracturing through the right transverse process and foramina transversarium. These fractures are not significantly displaced. He has undergone MRI of the cervical spine. Neurosurgical evaluation requested. 11/01: flexion/extension xrays completed. reports no significant cervical pain, mild neck pain, no new neuro complaints. (Erica Butt) Labs, Micro, & Vital Signs Results Date Time Temp Pulse Resp B/P (MAP) Pulse Ox O2 Delivery O2 Flow Rate FiO2 11/01/17 12:12 98.0 90 18 158/74 (102) 96 11/01/17 08:08 98.2 60 20 151/77 (101) 97 11/01/17 04:00 98.9 59 17 142/78 (99) 98 11/01/17 00:01 98.1 65 17 154/85 (108) 98 10/31/17 21:30 98.4 54 17 167/94 (118) 96 10/31/17 19:42 16 10/31/17 19:40 60 16 177/90 (119) 98 Room Air 10/31/17 18:42 17 10/31/17 17:43 59 16 175/99 (124) 99 Room Air Constitutional Vital Signs Date Time Temp Pulse Resp B/P (MAP) Pulse Ox O2 Delivery O2 Flow Rate FiO2 11/01/17 12:12 98.0 90 18 158/74 (102) 96 11/01/17 08:08 98.2 60 20 151/77 (101) 97 11/01/17 04:00 98.9 59 17 142/78 (99) 98 11/01/17 00:01 98.1 65 17 154/85 (108) 98 10/31/17 21:30 98.4 54 17 167/94 (118) 96 10/31/17 19:42 16 10/31/17 19:40 60 16 177/90 (119) 98 Room Air 10/31/17 18:42 17 10/31/17 17:43 59 16 175/99 (124) 99 Room Air (Erica Butt) Physical Exam General: Mr. Dill in no obvious distress Neuro: Awake, alert and oriented to person, place, and time. Speech is clear and fluent. Can follow single and multi-step commands without apraxia. Cranial nerve examination: pupils to be equal, round, and reactive to light. Extra- ocular movements are intact with normal convergence. Facial motor and sensory function are normal and symmetrical. Gross hearing is intact, bilaterally, to finger rub. The uvula is midline and elevates symmetrically with the soft palate. Sternocleidomastoid and deltoid muscles have normal and symmetrical strength. Other cranial nerves are intact. HEENT: Normocephalic, atraumatic. Gross hearing intact bilaterally. Nonicteric sclera. Neck: No massess, no JVD. Trachea midline. Immobilized by cervical collar. Musculoskeletal: No peripheral edema. No obvious deformities to extremities. No clubbing. 5/5 in all muscle groups of both upper extremities including deltoid, biceps, triceps and timber sizer. In the lower extremities, strength is 5/5 bilateral iliopsoas, quadriceps, bilateral hamstrings, tibialis anterior, gastrocnemius, and extensor hallucis longus. Sensory examination is intact light touch in both the upper and lower extremities Deep tendon reflexes are 2+ biceps, triceps, and brachioradialis, bilaterally, in the upper extremities. In the lower extremities, the patellar are 1+ and Achilles are 2+, bilaterally. There is a bilateral plantar flexion response. Hoffmanns sign is negative. There is no clonus. Cerebellar: intact finger to nose bilaterally Lungs: clear to auscultate bilaterally, nonlabored breathing on room air, no wheezing, no accessory muscle use. Heart: regular rate and rhythm Skin: warm and dry, no cyanosis or erythema. (Erica Butt) General: Mr. Dill in no obvious distress Neuro: Awake, alert and oriented to person, place, and time. Speech is clear and fluent. Can follow single and multi-step commands without apraxia. Cranial nerve examination: pupils to be equal, round, and reactive to light. Extra- ocular movements are intact with normal convergence. Facial motor and sensory function are normal and symmetrical. Gross hearing is intact, bilaterally, to finger rub. The uvula is midline and elevates symmetrically with the soft palate. Sternocleidomastoid and deltoid muscles have normal and symmetrical strength. Other cranial nerves are intact. HEENT: Normocephalic, atraumatic. Gross hearing intact bilaterally. Nonicteric sclera. Neck: No massess, no JVD. Trachea midline. Immobilized by cervical collar. Musculoskeletal: No peripheral edema. No obvious deformities to extremities. No clubbing. 5/5 in all muscle groups of both upper extremities including deltoid, biceps, triceps and timber sizer. In the lower extremities, strength is 5/5 bilateral iliopsoas, quadriceps, bilateral hamstrings, tibialis anterior, gastrocnemius, and extensor hallucis longus. Sensory examination is intact light touch in both the upper and lower extremities Deep tendon reflexes are 2+ biceps, triceps, and brachioradialis, bilaterally, in the upper extremities. In the lower extremities, the patellar are 1+ and Achilles are 2+, bilaterally. There is a bilateral plantar flexion response. Hoffmanns sign is negative. There is no clonus. Cerebellar: intact finger to nose bilaterally Lungs: clear to auscultate bilaterally, nonlabored breathing on room air, no wheezing, no accessory muscle use. Heart: regular rate and rhythm Skin: warm and dry, no cyanosis or erythema. (Manpreet Lang MD) Medications Current Medications Current Medications Medications (Trade) Dose Ordered Sig/Shay Route PRN Reason Start Time Stop Time Status Last Admin Dose Admin Sodium Chloride (NS Flush) 2 ml UNSCH PRN IV FLUSH FLUSH AFTER USING IV ACCESS 10/31/17 17:00 Acetaminophen/ Hydrocodone Bitart ([place] 5-325 Mg) 1 tab Q4H PRN PO PAIN SCALE 1 TO 5 10/31/17 17:00 Acetaminophen/ Hydrocodone Bitart ([place] 5-325 Mg) 2 tab Q4H PRN PO PAIN SCALE 6 TO 10 10/31/17 17:00 10/31/17 17:42 Enalaprilat (Vasotec Inj) 1.25 mg Q8H PRN IV PUSH SBP>180, DBP>95 10/31/17 17:00 Ondansetron HCl (Zofran Odt) 4 mg Q6H PRN PO NAUSEA OR VOMITING 10/31/17 17:00 10/31/17 22:32 Pantoprazole Sodium (Protonix Inj) 40 mg DAILY IVP 10/31/17 17:00 11/01/17 08:25 Docusate Sodium (Colace) 100 mg BID PO 10/31/17 21:00 11/01/17 08:25 Metoclopramide HCl (Reglan Inj) 10 mg Q8H PRN IV NAUSEA OR VOMITING 10/31/17 23:30 10/31/17 23:59 Scopolamine (Transderm-Scop 1.5 Mg Patch.72 Hr) 1 patch Q72H T-DERMAL 10/31/17 23:30 11/01/17 00:31 Hydromorphone HCl (Dilaudid Pf Inj) 1 mg Q3H PRN IV PUSH BREAKTHROUGH PAIN 11/01/17 11:15 Magnesium Hydroxide (Milk Of Magnesia Liq) 30 ml BID PO 11/01/17 21:00 Pravastatin Sodium (Pravachol) 80 mg HS PO 11/01/17 21:00 (Erica Butt) Current Medications Current Medications Labetalol HCl (Trandate Inj) 10 mg ONCE ONCE IV PUSH Last administered on 10/31at 12:25; Start 10/31/17 at 10:30; Stop 10/31/17 at 10:31; Status DC Morphine Sulfate (Morphine Inj) 4 mg ONCE ONCE IV PUSH Last administered on at 14:44; Start 10/31/17 at 14:45; Stop 10/31/17 at 14:46; Status DC Ondansetron HCl (Zofran Odt) 4 mg ONCE ONCE PO Last administered on at 14:43; Start 10/31/17 at 14:45; Stop 10/31/17 at 14:46; Status DC Sodium Chloride 1,000 ml @ 100 mls/hr Q10H IV Last administered on 11/01/17at 04:19; Start 10/31/17 at 16:57; Stop 11/01/17 at 11:06; Status DC Sodium Chloride (NS Flush) 2 ml UNSCH PRN IV FLUSH FLUSH AFTER USING IV ACCESS ; Start 10/31/17 at 17:00; Stop 11/02/17 at 14:32; Status DC Hydromorphone HCl (Dilaudid Pf Inj) 1 mg Q1H PRN IV PUSH BREAKTHROUGH PAIN; Start 10/31/17 at 17:00; Stop 11/01/17 at 11:06; Status DC Acetaminophen/ Hydrocodone Bitart ([place] 5-325 Mg) 1 tab Q4H PRN PO PAIN SCALE 1 TO 5; Start 10/31/17 at 17:00; Stop 11/02/17 at 14:32; Status DC Acetaminophen/ Hydrocodone Bitart ([place] 5-325 Mg) 2 tab Q4H PRN PO PAIN SCALE 6 TO 10 Last administered on 10/31/17at 17:42; Start 10/31/17 at 17:00; Stop 11/02/17 at 14:32; Status DC Enalaprilat (Vasotec Inj) 1.25 mg Q8H PRN IV PUSH SBP>180, DBP>95; Start at 17:00; Stop 11/02/17 at 14:32; Status DC Ondansetron HCl (Zofran Odt) 4 mg Q6H PRN PO NAUSEA OR VOMITING Last administered on 10/31/17at 22:32; Start 10/31/17 at 17:00; Stop 11/02/17 at 14:32 ; Status DC Pantoprazole Sodium (Protonix Inj) 40 mg DAILY IVP Last administered on at 09:17; Start 10/31/17 at 17:00; Stop 11/02/17 at 14:32; Status DC Docusate Sodium (Colace) 100 mg BID PO Last administered on 11/02/17at 09:17; Start 10/31/17 at 21:00; Stop 11/02/17 at 14:32; Status DC Miscellaneous Information ([facility]) 1 [id number] XX ; Start at 17:00; Stop 11/01/17 at 11:06; Status DC Chlorhexidine Gluconate (Chlorhexidine 2% Cloth) 3 pack Taper DAILY@04 TOP ; Start 11/01/17 at 04:00; Stop 11/01/17 at 11:06; Status DC Chlorhexidine Gluconate (Chlorhexidine 2% Cloth) 3 pack UNSCH PRN TOP HYGIENIC CARE; Start 10/31/17 at 17:00; Stop 11/01/17 at 11:06; Status DC Metoclopramide HCl (Reglan Inj) 10 mg Q8H PRN IV NAUSEA OR VOMITING Last administered on 10/31/17at 23:59; Start 10/31/17 at 23:30; Stop 11/02/17 at 14:32 ; Status DC Scopolamine (Transderm-Scop 1.5 Mg Patch.72 Hr) 1 patch Q72H T-DERMAL Last administered on 11/01/17at 00:31; Start 10/31/17 at 23:30; Stop 11/02/17 at 14:32 ; Status DC Hydromorphone HCl (Dilaudid Pf Inj) 1 mg Q3H PRN IV PUSH BREAKTHROUGH PAIN; Start 11/01/17 at 11:15; Stop 11/02/17 at 14:32; Status DC Magnesium Hydroxide (Milk Of Magnesia Liq) 30 ml BID PO Last administered on at 09:17; Start 11/01/17 at 21:00; Stop 11/02/17 at 14:32; Status DC Pravastatin Sodium (Pravachol) 80 mg HS PO ; Start 11/01/17 at 21:00; Stop 11/02 at 14:32; Status DC (Manpreet Lang MD) Medical Decision Making MDM Remarks 62 y/o male fall off scaffolding suffered C1 fracture, stable flexion/extension xrays reviewed by Dr. Lang (Erica Butt) Plan Plan Remarks cont nonop mgt of C1 fracture with [place] collar dw pt regarding strict activity restrictions cont neuro checks start mobilizing OOB clear to dc from NRS standpoint f/u c-spine xrays in 4 weeks (Erica Butt) Attending Statement I reviewed his MRI C spine. His fracture is potentially unstable. I again discussed with him the alternatives of treatment with the patient, including conservative treatment with a [place] collar versus placement of a halo brace . Recommend that he undergoes flexion extension xrays of the cervical spine for further evaluation of ligamentous instability. I will defer further recommendations to upon completion Continue Percocet/morphine as needed for pain Arterial hypertension. Manage with antihypertensives as needed Post traumatic nauseas/emesis. Zofran as needed Pulmonary. aggressive pulmonary toilette, nasotracheal suction, and breathing treatments with nebulizers. Daily PT and OT Renal. Continue to monitor closely urine output, BUN and creatinine Endocrine. Continue to Monitor serial Acu checks and SSI as needed in detail ID continue to monitor for signs of infection Continue Protonix for stress ulcer prophylaxis Continue Ryan hose and SCD's for DVT prophylaxis Caprini VTE Risk Assessment Caprini VTE Risk Assessment: Mod/High Risk (score >= 2) VTE Pharm Contraindication: Intracranial lesions Caprini Risk Assessment Model Point Value = 1 Point Value = 2 Point Value = 3 Point Value = 5 Age 41-60 Minor surgery BMI > 25 kg/m2 Swollen legs Varicose veins or History of unexplained or recurrent spontaneous Oral contraceptives or hormone replacement Sepsis (< 1 month) Serious lung disease, including pneumonia (< 1 month) Abnormal pulmonary function Acute myocardial infarction Congestive heart failure (< 1 month) History of inflammatory bowel disease Medical patient at bed rest Age 61-74 Arthroscopic surgery Major open surgery (> 45 min) Laparoscopic surgery (> 45 min) Malignancy Confined to bed (> 72 hours) Immobilizing plaster cast Central venous access Age >= 75 History of VTE Family history of VTE Factor V Leiden Prothrombin [id number] Lupus anticoagulant Anticardiolipin antibodies Elevated serum homocysteine Heparin-induced thrombocytopenia Other congenital or acquired thrombophilia Stroke (< 1 month) Elective arthroplasty Hip, pelvis, or leg fracture Acute spinal cord injury (< 1 month) Prophylaxis Regimen Total Risk Factor Score Risk Level Prophylaxis Regimen 0-1 Low Early ambulation 2 Moderate Order ONE of the following: *Sequential Compression Device (SCD) *Heparin 5000 units SQ BID 3-4 Higher Order ONE of the following medications: *Heparin 5000 units SQ TID *Enoxaparin/Lovenox 40 mg SQ daily (WT < 150 kg, CrCl > 30 mL/min) *Enoxaparin/Lovenox 30 mg SQ daily (WT < 150 kg, CrCl > 10-29 mL/min) *Enoxaparin/Lovenox 30 mg SQ BID (WT < 150 kg, CrCl > 30 mL/min) AND/OR *Sequential Compression Device (SCD) 5 or more Highest Order ONE of the following medications: *Heparin 5000 units SQ TID (Preferred with Epidurals) *Enoxaparin/Lovenox 40 mg SQ daily (WT < 150 kg, CrCl > 30 mL/min) *Enoxaparin/Lovenox 30 mg SQ daily (WT < 150 kg, CrCl > 10-29 mL/min) *Enoxaparin/Lovenox 30 mg SQ BID (WT < 150 kg, CrCl > 30 mL/min) AND *Sequential Compression Device (SCD) Further recommendations depending on his clinical condition and follow-up studies The exam, history, and the medical decision-making described in the above note were completed with the assistance of the mid-level provider. I reviewed and agree with the findings presented. I attest that I had a [id number] encounter with the patient on the same day, and personally performed and documented my assessment and findings in the medical record. (Manpreet Lang MD) (Manpreet Lang MD) Erica Butt Nov 01, 2017 15:23 Manpreet Lang MD Nov 03, 2017 19:14
[2017-11-01] MEDS ORDERED: MAGN30S PO (15:24)
[2017-11-01] MEDS ORDERED: DOCU1CAP39 PO (15:24)
[2017-11-01 19:52] VITALS: BP 152/81; PULSE 57; RESP 16; TEMP 98.5; O2SAT 96
[2017-11-01] MEDS ORDERED: PRAVASTATIN SOD 80 MG TAB PO SCH (21:00)
[2017-11-01] MEDS ORDERED: LOSA50TA6 PO (21:37)
[2017-11-01] MEDS: MAGNESIUM HYDROXIDE SUSP 30 ML CUP PO SCH (21:40)
[2017-11-02 00:01] VITALS: BP 153/75; PULSE 60; RESP 17; TEMP 98.2; O2SAT 98
[2017-11-02 08:00] VITALS: BP 143/81; PULSE 54; RESP 20; TEMP 97.6; O2SAT 99
[2017-11-02] MEDS: DOCUSATE SODIUM 100 MG CAP PO SCH (09:17)
[2017-11-02] MEDS: MAGNESIUM HYDROXIDE SUSP 30 ML CUP PO SCH (09:17)
[2017-11-02] MEDS: PANTOPRAZOLE SODIUM 40 MG VIAL IVP SCH (09:17)
[2017-11-02] MEDS ORDERED: ONDA4TAB7 PO (11:19)
[2017-11-02] MEDS ORDERED: HYDR-3516 PO (11:19)
--- NOTE | 2017-11-02 13:51 | HHI.DS ---
Discharge Summary Admission Date Oct 31, 2017 at 13:58 Discharge Date: Nov 02, 2017 Admitting Diagnosis acute C1 fx, head injury (1) C1 cervical fracture ICD Codes: S12.000A - Unspecified displaced fracture of first cervical vertebra , initial encounter for closed fracture Diagnosis: Principal Status: Acute Brief History Fall. CBC/BMP: 11/01/17 0650 11/01/17 0650 Significant Findings Laboratory Tests Test 10/31/17 10:15 11/01/17 06:50 Red Blood Count 3.82 MIL/MM3 (4.50-5.90) 3.88 MIL/MM3 (4.50-5.90) Hemoglobin 12.9 GM/DL (13.0-17.0) 12.4 GM/DL (13.0-17.0) Hematocrit 36.1 % (39.0-51.0) 37.0 % (39.0-51.0) Neutrophils (%) (Auto) 78.3 % (16.0-70.0) 71.3 % (16.0-70.0) Lymphocytes # (Auto) 0.9 TH/MM3 (1.0-4.8) Blood Urea Nitrogen 28 MG/DL (7-18) 20 MG/DL (7-18) Estimat Glomerular Filtration Rate 60 ML/MIN (>89) 77 ML/MIN (>89) Monocytes (%) (Auto) 9.5 % (0.0-8.0) Imaging Last Impressions Chest X-Ray 11/01/17 0000 Signed Impressions: CONCLUSION: No acute cardiopulmonary abnormality is identified. Head CT 10/31/17 0000 Signed Impressions: CONCLUSION: 1. No acute intracranial abnormality is seen. 2. Sinus disease. Cervical Spine X-Ray 10/31/17 0000 Signed Impressions: CONCLUSION: Fusions as above with significant degenerative changes No abnormal motion segments. Cervical Spine MRI 10/31/17 0000 Signed Impressions: CONCLUSION: 1. Advanced degenerative spondylosis with the most significant abnormality at C4-5. Note is made of significant degenerative changes at C3-4 and C5-6 as well . The individual levels are dictated in detail above. Cervical Spine CT 10/31/17 0000 Signed Impressions: CONCLUSION: 1. Acute fracture at C1. 2. Fusion at the C2-C3 level and at the left facet and uncovertebral hypertrop hy at the C3-C4 levels. 3. Moderate stenosis at the C4-C5 level caused by disc bulge and osteophytic r idging. 4. Mild thecal sac narrowing at the C5-C6 and C6-C7 levels. 5. Facet and uncovertebral hypertrophy seen throughout as described above. 6. Left neural foraminal narrowing at the C3-C4 level. PE at Discharge GENERAL: This is a 62-year-old male lying in bed. No distress noted. SKIN: Warm and dry. HEAD: Atraumatic. Normocephalic. EYES: PERRLA ENT: No nasal bleeding or discharge. Mucous membranes pink and moist. NECK: Gray[place] J collar in place. Trachea midline. No JVD. CARDIOVASCULAR: Regular rate and rhythm. RESPIRATORY: No accessory muscle use. Lungs are clear to auscultation. Breath sounds equal bilaterally. No distress or dyspnea. GASTROINTESTINAL: BS + x 4 quads. Abdomen soft, non-tender, nondistended. MUSCULOSKELETAL: Extremities without cyanosis, or edema. + peripheral pulses x 4 extremities. Warm with good capillary refill and sensation. MAEW. NEUROLOGICAL: Awake and alert. Normal speech and pattern. Hospital Course [place]: This is a 62-year-old male who sustained a fall. He fell from a platform approximately 5 feet off the ground while working on a house. He fell head first and struck his head. No LOC. He originally complained of some neck stiffness. Patient states that after he hit the ground, "my right hand would not work for about a minute." He is now moving all extremities well. He had been ambulatory for 2 hours prior to admission. He drove himself to the hospital. INJURIES: C1 fx w/ canal narrowing PMHx: Hyperlipidemia. HTN. Hernia surgery. Procedures: Consults: Neurosurgery. Case management. Patient and his would really like to go home. The patient is now tolerating a po diet. Eating and drinking well. Pain is being managed well with PO pain medications, and patient is being a provided with a script for pain meds upon discharge. (NO driving while taking narcotic pain medication enforced to patient.) Patient states his pain is minimal. We will also provide a prescription for nausea as the pain medications tend to make him sick to his stomach. We have recommended to patient to continue with stool softeners while taking narcotic pain medications to prevent constipation. Pt has been participating in PT and OT while admitted at [facility] and has been ambulating with their assistance and independently. No PT needs at home. All follow up appointments have been provided and discussed with the patient. It is recommended that the patient keeps all his follow up appointments for continued recovery. Patient's condition and plan of care discussed with collaborating trauma surgeon. He is agreeable to plan for discharge today. Therefore, the patient is stable to be safely discharged home from a trauma surgery standpoint. Thank you for allowing us to participate in his care. We wish Jerry the best in his recovery. . C1 fx w/ canal narrowing Neurosurgery consulted and assisting in management care Nonoperative management at this time Supportive care Pain management Bedrest PT and OT ordered [place] J collar at all times GI prophylaxis Bowel regimen Control nausea vomiting Follow-up with neurosurgery outpatient HTN Hyperlipidemia Heart healthy diet Vitals every 4 hours Resume statin Monitor closely Pt Condition on Discharge: Stable Discharge Disposition: Discharge Home Discharge Instructions DIET: Follow Instructions for: Heart Healthy Diet Activities you can perform: Regular-No Restrictions Activities to Avoid: Driving for 24 hrs, Concussion Sports, Contact Sports, Lifting/Bending, Prolonged Standing, Strenuous Activity, Driving Other Activity Instructions: NO DRIVING while taking narcotic pain meds NO DRIVING until cleared by Jessica Maguire Nov 02, 2017 13:51
== END 2017-11-02 14:31 | disposition home or self-care (01) | DRG 552 ==
LOC: NEPC 09:56 → NEDA 13:58 → N06B 21:10
PROVIDERS: ADMIT Surgery; ATTEND Surgery
DX: S12.091A Other nondisplaced fracture of first cervical vertebra, initial encounter for closed fracture (principal); S09.90XA Unspecified injury of head, initial encounter; I10 Essential (primary) hypertension; E78.5 Hyperlipidemia, unspecified; R20.2 Paresthesia of skin; H91.90 Unspecified hearing loss, unspecified ear; R11.2 Nausea with vomiting, unspecified; M48.02 Spinal stenosis, cervical region; W17.89XA Other fall from one level to another, initial encounter
CPT/HCPCS: 70450; 71045; 72040; 72125; 72141; 80048; 85025; 85610; 85730; 94150; 96374; C9113; J2270; J2765; J7030; L0150; L0172